=== PATIENT | female | born 1985 | race Native Hawaiian/Other Pacific Islander ===

== ENCOUNTER 2021-12-21 12:04 | Emergency (ER) | payer OTHER ==
[~2021-12-21] VITALS: Ht 172.7 cm; Wt 149.7 kg
[2021-12-21 12:14] VITALS: BP 137/88; TEMP 98.9
[2021-12-21] MEDS ORDERED: CEPH500C20 PO (14:46)
== END 2021-12-21 14:50 | disposition home or self-care (01) ==
LOC: ED 12:04
DX: I80.3 Phlebitis and thrombophlebitis of lower extremities, unspecified (principal); Z98.890 Other specified postprocedural states
CPT/HCPCS: 99283

== ENCOUNTER 2021-12-31 16:08 | Emergency (ER) | payer OTHER ==
[~2021-12-31] VITALS: Ht 172.7 cm; Wt 149.7 kg
[~2021-12-31 16:08] MED LIST: CEPH500C20 PO
[2021-12-31 16:36] VITALS: TEMP 98.2
[2021-12-31 18:20] VITALS: BP 116/81
[2021-12-31] MEDS ORDERED: PRED20TA27 PO (18:20)
[2021-12-31] MEDS ORDERED: PEPCID40 MG PO (18:20)
== END 2021-12-31 18:27 | disposition home or self-care (01) ==
LOC: ED 16:08
DX: T50.995A Adverse effect of other drugs, medicaments and biological substances, initial encounter (principal); X58.XXXA Exposure to other specified factors, initial encounter; Y92.89 Other specified places as the place of occurrence of the external cause
CPT/HCPCS: 96372; 99283; J0171; J1100; J1200

== ENCOUNTER 2022-07-03 13:55 | Emergency (ER) | payer OTHER ==
[~2022-07-03] VITALS: Ht 172.7 cm; Wt 155.1 kg
[~2022-07-03 13:55] MED LIST changes: +PEPCID40 MG PO; +PRED20TA27 PO
[2022-07-03 13:58] VITALS: TEMP 97.1
[2022-07-03 16:20] VITALS: BP 132/74
== END 2022-07-03 16:20 | disposition home or self-care (01) ==
LOC: ED 13:55
DX: S93.692A Other sprain of left foot, initial encounter (principal); W10.8XXA Fall (on) (from) other stairs and steps, initial encounter; Y92.096 Garden or yard of other non-institutional residence as the place of occurrence of the external cause
CPT/HCPCS: 96372; 99283; J1885

== ENCOUNTER 2022-08-05 16:45 | Emergency (ER) | payer OTHER ==
[~2022-08-05] VITALS: Ht 175.3 cm; Wt 155.1 kg
[2022-08-05 16:50] VITALS: BP 142/87; TEMP 99.4
== END 2022-08-05 19:09 | disposition home or self-care (01) ==
LOC: ED 16:45
DX: T78.2XXA Anaphylactic shock, unspecified, initial encounter (principal); X58.XXXA Exposure to other specified factors, initial encounter; Y92.89 Other specified places as the place of occurrence of the external cause
CPT/HCPCS: 96372; 99283; J0171; J1200; J2930